=== PATIENT | female | born 1965 | race Caucasian/White ===

== ENCOUNTER 2020-03-31 15:09 | Outpatient (REF) | payer OTHER, SELFPAY ==
[2020-03-31 15:27] LABS: COVID-19 Test Negative (Negative)
== END 2020-03-31 15:10 | disposition home or self-care (01) ==
LOC: HO.LAB 15:09
PROVIDERS: Visit Provider Internal Medicine
DX: Z20.828 Contact with and (suspected) exposure to other viral communicable diseases (principal)
CPT/HCPCS: 87635

== ENCOUNTER 2020-04-02 13:04 | Outpatient (REF) | payer OTHER, SELFPAY ==
[2020-04-02 13:24] LABS: COVID-19 Test Negative (Negative)
== END 2020-04-02 13:05 | disposition home or self-care (01) ==
LOC: HO.LAB 13:04
PROVIDERS: Visit Provider Internal Medicine
DX: Z20.828 Contact with and (suspected) exposure to other viral communicable diseases (principal)
CPT/HCPCS: 87635

== ENCOUNTER 2025-06-09 11:07 | Outpatient (REF) | payer OTHER, SELFPAY ==
--- NOTE | ~2025-06-09 | MM_ITS ---
EXAMINATION: DXA BONE DENSITY AXIAL HISTORY: HEIGHT LOSS TECHNIQUE: [employer] Dual energy absorptiometry (DEXA) of the lumbar spine, total left hip, and femoral neck was performed. COMPARISON: There are no prior studies for comparison. FINDINGS: The bone mineral density of the lumbar spine is 1.076 g/cm2, corresponding to a T-score of -0.8, and a Z-score of 0.4. This is indicative of normal bone mineral density. The bone mineral density of the left total hip is 0.952 g/cm2, corresponding to a T-score of -0.4, and a Z-score of 0.5. This is indicative of normal bone mineral density. The bone mineral density of the left femoral neck is 1.070 g/cm2, corresponding to a T-score of 0.2, and a Z-score of 1.5. This is indicative of normal bone mineral density. FRACTURE RISK: The FRAX index suggests a risk of major osteoporotic fracture of 10.2%, and of hip fracture 0.2%. MM/XR DEXA axial skeleton IMPRESSION: Based on bone mineral density, and according to World Health Organization (WHO) criteria, the diagnosis is consistent with normal bone mineral density. Statistically, 68% of repeat scans fall within 1 SD (+/- 0.010 g/cm2 for AP spine L1-L4) and 1 SD (+/- 0.012 g/cm2 for femur total) FRAX is a trademark of the [employer] [place] [facility] [employer], a World Health Organization (WHO) Collaborating Center. Electronically signed by: Frank Ochoa MD 06/09/2025 12:02 PM [facility] [place]
== END 2025-06-09 11:08 | disposition home or self-care (01) ==
LOC: HO.MAMMO 11:07
PROVIDERS: PCP Nurse Practitioner Primary Care; Visit Provider Nurse Practitioner Primary Care
DX: Z12.31 Encounter for screening mammogram for malignant neoplasm of breast (principal); R29.890 Loss of height
CPT/HCPCS: 77063; 77067; 77080

== ENCOUNTER → 2025-06-09 11:30 | Outpatient (BNV) | payer OTHER, SELFPAY | PROVIDERS: PCP Nurse Practitioner Primary Care; Visit Provider Radiology Diagnostic Radiology | DX: E28.39 Other primary ovarian failure (principal) | CPT/HCPCS: 77080 ==